=== PATIENT | female | born 1960 | race Caucasian/White ===

== ENCOUNTER → 2016-07-30 | Outpatient (CLI) | payer OTHER ==
[2016-07-30 10:07] LABS: Basophils % (A) 1 %; CH 31.6; CHCM 33.7; Eosinophils # (A) 0.1 k/uL (0-0.7); Eosinophils % (A) 1 %; HCT 37.8 % (34.0-46.0); HDW 2.28; HGB 12.3 gm/dL (11.4-16.0); Luc # (Auto) 0.11; Luc % (Auto) 2; Lymphocytes # (A) 1.5 k/uL (1.0-4.8); Lymphocytes % (A) 30 %; MCH 30.6 pg (25.0-35.0); MCHC 32.5 g/dL (31.0-37.0); MCV 94.1 fL (80.0-100.0); Mean Platelet Volume 6.5; Monocytes # (A) 0.3 k/uL (0-1.0); Monocytes % (A) 7 %; Neutrophils # (A) 2.9 k/uL (1.3-7.7); Neutrophils % (A) 59 %; RBC 4.02 m/uL (3.80-5.40); RDW 11.8 % (11.5-15.5); WBC (Perox) 5.28
[2016-07-30 10:38] LABS: Anion Gap 10 mmol/L; Blood Urea Nitrogen 11 mg/dL (7-17); Carbon Dioxide 29 mmol/L (22-30); Chloride 100 mmol/L (98-107); Glucose 93 mg/dL (74-99); Non-African American GFR(MDRD) >60 (>60 ml/min/1.73 sqM); Potassium 4.3 mmol/L (3.5-5.1); Sodium 139 mmol/L (137-145)
== END | disposition home or self-care (01) ==
LOC: LABPAT 08:58
PROVIDERS: ATTEND Obstetrics & Gynecology
DX: Z01.812 Encounter for preprocedural laboratory examination (principal)
CPT/HCPCS: 80051; 82565; 82947; 84520; 85025; 87086

== ENCOUNTER 2016-08-06 05:57 | Observation (INO) | payer OTHER ==
[2016-08-01 08:46] VITALS: BMI 21.9
[~2016-08-06 05:57] MED LIST: SCOPOLAMINE 1.5MG/72HR PATCH TRANSDERM ONE; ceFAZolin 2 GM in SODIUM CHLORIDE 0.9% 100 ML IVPB ONE
[2016-08-06] MEDS ORDERED: MIDAZOLAM 2 MG/2 ML VIAL IV PRN (06:12)
[2016-08-06] MEDS ORDERED: HYDROmorphone 1 MG/ML 1 ML SYRINGE IVP PRN (06:12)
[2016-08-06] MEDS ORDERED: DEXAMETHASONE SOD PHOSPHATE 10 MG/ML 1 ML VIAL IV ONE (06:12)
[2016-08-06] MEDS ORDERED: ONDANSETRON 4 MG/2 ML VIAL IVP ONE (06:12)
[2016-08-06] MEDS ORDERED: SCOPOLAMINE 1.5MG/72HR PATCH TRANSDERM ONE (06:12)
[2016-08-06] MEDS ORDERED: LIDOCAINE 1% 20 ML VIAL (10MG/ML) FOR IV START INTRADERMA ONE (06:37)
[2016-08-06] MEDS: LACTATED RINGERS 1,000 ML IV SCH (06:37)
[2016-08-06] MEDS ORDERED: VASOPRESSIN 20 UNIT/ML 1 ML VIAL SQ ONE ×2 (07:30→07:59)
[2016-08-06] MEDS ORDERED: BACITRACIN 500 UNIT/GM OINT 28.4 GM TUBE TOPICAL ONE ×2 (07:31→08:04)
[2016-08-06] MEDS ORDERED: MIDAZOLAM 2 MG/2 ML VIAL IVP ONE (07:39)
[2016-08-06] MEDS ORDERED: MIDAZOLAM 2 MG/2 ML VIAL ONE (07:40)
[2016-08-06] MEDS ORDERED: fentaNYL (PF) 50 MCG/ML 2 ML AMP IV ONE (07:40)
[2016-08-06] MEDS ORDERED: PROPOFOL 10 MG/ML 20 ML VIAL IV ONE (07:40)
[2016-08-06] MEDS ORDERED: fentaNYL (PF) 50 MCG/ML 2 ML AMP ONE (07:40)
[2016-08-06] MEDS ORDERED: MORPHINE SULFATE (PF) 0.3 MG/0.3 ML SYR ONE (07:40)
[2016-08-06] MEDS ORDERED: diphenhydrAMINE 50 MG/ML 1 ML VIAL IVP PRN (08:35)
[2016-08-06] MEDS ORDERED: MORPHINE SULFATE 4 MG/ML SYRINGE IVP PRN (08:35)
[2016-08-06] MEDS ORDERED: ONDANSETRON 4 MG/2 ML VIAL IVP PRN ×2 (08:35→08:50)
[2016-08-06] MEDS ORDERED: NALOXONE 0.4 MG/ML 1 ML VIAL IV PRN (08:35)
[2016-08-06] MEDS ORDERED: NALBUPHINE 10 MG/ML AMPUL IV PRN (08:35)
[2016-08-06] MEDS ORDERED: KETOROLAC 30 MG/ML 1 ML VIAL IVP PRN (08:35)
[2016-08-06] MEDS ORDERED: SIMETHICONE 80 MG CHEWABLE PO PRN (08:50)
[2016-08-06] MEDS ORDERED: METOCLOPRAMIDE 5 MG/ML 2 ML VIAL IVP PRN (08:50)
[2016-08-06] MEDS ORDERED: ZOLPIDEM 5 MG TAB PO PRN (08:50)
[2016-08-06] MEDS ORDERED: Acetaminophen-Codeine 300-30mg TAB PO PRN (08:50)
[2016-08-06] MEDS ORDERED: IBUPROFEN 600 MG TAB PO PRN (08:50)
--- NOTE | 2016-08-06 08:50 | P.OP ---
Date of Procedure: 08/06/16 Preoperative Diagnosis: Large endometrial polyp, postmenopausal bleeding, family hx ovarian CA Postoperative Diagnosis: Pathology pending Procedure(s) Performed: Vaginal hysterectomy, bilateral oophorectomy Anesthesia: SKYEA Surgeon: Dhara Bejarano Stockroom Associate #1: Min Kelley Estimated Blood Loss (ml): 25 IV fluids (ml): 500 Urine output (ml): 100 Pathology: other (Cervix and uterus, bilateral ovaries.) Condition: stable Disposition: PACU Description of Procedure: Patient is brought to the operating room where a spinal with Duramorph is placed without difficulty. She's placed in the dorsal lithotomy position. Antibiotics are given. Urine hCG is negative. The appropriate timeout is performed to assure proper patient and procedural identification. The cervix, vagina, perineal body and lower abdomen are all prepped and draped in usual sterile fashion. Examination under anesthesia reveals a small mobile uterus, small bilateral ovaries. Weighted speculum was placed into the vagina. Bladder is drained for 100 mL of clear yellow urine. A double-tooth tenaculum was used to grasp the small nulliparous cervix. She is injected circumferentially with a dilute Pitressin solution. A [place] blade scalpel is used to push the overlying mucosa from the underlying fascial plane. Peritoneum is entered at 6:00, suture tied with 2-0 Vicryl, and the large billed speculum was placed into the peritoneal cavity. Care at all times is taken to keep the mucosa swept well from the operative field to avoid bladder and/or ureteral injury. Uterosacral cardinal ligaments are identified, clamped with a Ronald clamp, cut and suture ligated, held bilaterally with hemostats. Uterine vasculature is identified, clamped cut and suture ligated. 2 additional pedicles are taken superior to the vessels. The anterior peritoneum was entered carefully with Metzenbaum scissors. Uterus is "walked out" posteriorly. Ronald clamps are used across the final pedicles and the specimen is removed. These pedicles are tied with 0 Vicryl suture, flashed , and retied for excellent hemostasis. A sponge stick is then placed into the peritoneal cavity. The right ovary is identified, grasped gently with a Tippo clamp. A Ronald clamp was placed over the ovarian pedicle in the ovaries removed. The pedicle is tied with a Armin stitch of 0 Vicryl for excellent hemostasis. The same procedure is carried out on the left or contralateral ovary. This tube appears normal to inspection. It is removed, pedicle tied with a Armin stitch of 0 Vicryl for excellent hemostasis. The tubes are rather high in the peritoneal cavity, and therefore left in situ. The speculum is then replaced with the shallow billed weighted speculum. The 2- 0 Vicryl suture placed at 6:00 is brought around in a pursestring fashion to close the peritoneum. All pedicles are inspected, noted to be intact, clean and dry. The previously held uterosacral cardinal ligament complex these are then brought across to incorporate the opposite complex as well as vaginal mucosa. 3 additional [id number] sutures of 0 Vicryl are used for final cuff closure. The vagina is packed with one-inch iodophor gauze. Painter catheter is placed in the urine is noted to be clear. All sponge needle and enhancement counts are correct. Patient is brought back to the recovery room in excellent condition with stable vital signs including blood pressure 105/58, pulse 56.
[2016-08-06] MEDS: diphenhydrAMINE 50 MG/ML 1 ML VIAL IVP PRN ×2 (14:26→20:31)
[2016-08-06] MEDS: KETOROLAC 30 MG/ML 1 ML VIAL IVP PRN (20:29)
[2016-08-07 04:29] VITALS: RESP 16
[2016-08-07] MEDS: LACTATED RINGERS 1,000 ML IV SCH (06:43)
[2016-08-07] MEDS: KETOROLAC 30 MG/ML 1 ML VIAL IVP PRN (06:44)
[2016-08-07 08:13] VITALS: BP 130/70; PULSE 74
[2016-08-07] MEDS ORDERED: ACETAMINOPHEN TAB 325 MG TAB PO PRN (08:51)
--- NOTE | 2016-08-07 09:07 | P.DS ---
Providers Date of admission: 08/07/16 06:58 Expected date of discharge: 08/07/16 Attending physician: Dhara Bejarano Primary care physician: Abby [facility] Course: The patient is a 55-year-old 0 para 0 who is status post endometrial ablation in 2009 and was found to have what appeared to be a large endometrial polyp by ultrasound. She was not having any ongoing bleeding or other concerns but was very concerned about the possibility of uterine and/or ovarian cancer as there is apparently a strong family history. She requested hysterectomy under the circumstances. She was taken the operating room where she underwent a vaginal hysterectomy and uncomplicated fashion. Her postoperative course was unremarkable vital signs remaining stable and her temperature was afebrile throughout. She was tolerating regular diet by postoperative day #1 was deemed stable for discharge on that day. She was discharged home to follow-up in the office in 2 weeks for recheck and 6 weeks routinely. Discharge instructions included calling for any significantly increased vaginal bleeding, fever, abdominal pain, GI complaints, or anything else that concerned her. She is additionally instructed to have nothing in the vagina for at least 6 weeks time to include intercourse and to abstain from any heavy lifting over the same period of time. She was last instructed to do no driving until off of all pain medications or 2 weeks' time, whichever came first. She understood her instructions and agrees to follow up as noted above. Discharge medications included [id number] analgesic pain medications as well as any home medications she may have been taking. She was provided with a prescription for Tylenol 3, 1-2 by mouth every 6 hours when necessary pain, #20 dispensed with no refills. Discharge hemoglobin and hematocrit are pending. Procedures: #1. Vaginal hysterectomy Patient Condition at Discharge: Good Plan - Discharge Summary New Discharge Prescriptions: Acetaminophen-Codeine 300-30mg [Tylenol #3] 2 tab PO Q6H PRN #20 tablet PRN Reason: Pain Discharge Medication List Acetaminophen-Codeine 300-30mg [Tylenol #3] 2 tab PO Q6H PRN #20 tablet [Rx] Follow up Appointment(s)/Referral(s): Dhara Bejarano MD [STAFF PHYSICIAN] - 2 Weeks Discharge Disposition: HOME SELF-CARE
--- NOTE | 2016-08-07 09:10 | P.PN ---
Progress Note - Text Date: 08/07/2016 Time: 0 621 The patient is status post, vaginal hysterectomy Vital signs stable VAS: 0-10 Patient has no complaints of pain. The patient incurred some minimal itching yesterday, this itching is now subsiding. Pain meds to be managed by service.
[2016-08-07 09:20] VITALS: TEMP 98.7
== END 2016-08-07 09:37 | disposition home or self-care (01) ==
LOC: OR 05:57 → 6PED 08:47 → OR 08-07 06:57 → 6PED 08-07 06:58
PROVIDERS: ADMIT Obstetrics & Gynecology; ATTEND Obstetrics & Gynecology
DX: N84.0 Polyp of corpus uteri (principal); N95.0 Postmenopausal bleeding; Z80.41 Family history of malignant neoplasm of ovary; D25.0 Submucous leiomyoma of uterus; L29.9 Pruritus, unspecified; N83.202 Unspecified ovarian cyst, left side; N83.201 Unspecified ovarian cyst, right side; Z88.2 Allergy status to sulfonamides; Z88.0 Allergy status to penicillin; N83.12 Corpus luteum cyst of left ovary; N83.11 Corpus luteum cyst of right ovary
CPT/HCPCS: 81025; 86900; 86901; 86850; 88307; 58262; G0378; J2250; J1200; J1100; J0690; J2405; J2274; J3010; J1885 ×2; J2704

== ENCOUNTER 2021-12-28 07:28 | Day surgery (SDC) | payer OTHER ==
[~2021-12-28 07:28] MED LIST changes: +DEXAMETHASONE SOD PHOSPHATE 4 MG/ML 1 ML VIAL IV ONE; +HYDROmorphone 0.5 MG/0.5 ML SYRINGE IVP PRN; +LACTATED RINGERS 1,000 ML IV SCH; +MIDAZOLAM 2 MG/2 ML VIAL IV PRN; +ONDANSETRON 4 MG/2 ML VIAL IVP ONE; +Pre Op ABX Message 1 EACH MISC MISCELLANE ONE; +SCOPOLAMINE 1 MG/72 HR PATCH TRANSDERM ONE; -SCOPOLAMINE 1.5MG/72HR PATCH TRANSDERM ONE; -ceFAZolin 2 GM in SODIUM CHLORIDE 0.9% 100 ML IVPB ONE
[2021-12-28] MEDS ORDERED: LIDOCAINE 1% (10MG/ML) FOR IV START INTRADERMA ONE (08:03)
[2021-12-28] MEDS ORDERED: fentaNYL (PF) 50 MCG/ML 2 ML AMP IV ONE (08:21)
--- NOTE | 2021-12-28 08:47 | P.ANPRN ---
Procedure Note - Anesthesia - Nerve Block Performed Left Popliteal Single Time Out Performed: Yes (821) Date of Procedure: 12/28/21 Procedure Start Time: Procedure Stop Time: Location of Patient: PreOp Indication: Acute Post-Operative Pain, Requested by Surgeon Specifically requested for management of pain by DrWan: Tin Ndiaye Sedation Type: Sedate with meaningful contact maintained Preparation: Sterile Prep Position: Supine Catheter: None Needle Types: Pajunk Needle Gauge: 21 Ultrasound used to visualize needle placement: Yes Ultrasound used to observe medication spread: Yes Injectate: 0.5% Ropivacaine (see comment for volume) (15cc + 5cc nacl) Blood Aspirated: No Pain Paresthesia on Injection Noted: No Resistance on Injection: Normal Image Stored and Saved: Yes Events: Uneventful and Well Tolerated
--- NOTE | 2021-12-28 08:48 | P.ANPRN ---
Procedure Note - Anesthesia - Nerve Block Performed Left Adductor Canal Single Time Out Performed: Yes (821) Date of Procedure: 12/28/21 Procedure Start Time: : Procedure Stop Time: Location of Patient: PreOp Indication: Acute Post-Operative Pain, Requested by Surgeon Specifically requested for management of pain by DrWan: Tin Ndiaye Sedation Type: Sedate with meaningful contact maintained Preparation: Sterile Prep Position: Supine Catheter: None Needle Types: Pajunk Needle Gauge: 21 Ultrasound used to visualize needle placement: Yes Ultrasound used to observe medication spread: Yes Injectate: 0.5% Ropivacaine (see comment for volume) (15cc + 5cc nacl pf) Blood Aspirated: No Pain Paresthesia on Injection Noted: No Resistance on Injection: Normal Image Stored and Saved: Yes Events: Uneventful and Well Tolerated
[2021-12-28] MEDS ORDERED: PROPOFOL 10 MG/ML 20 ML VIAL IV ONE (09:23)
[2021-12-28] MEDS ORDERED: ROPIVACAINE 5 MG/ML 30 ML VIAL ONE (09:23)
[2021-12-28] MEDS ORDERED: LIDOCAINE 2% INJ 20 MG/ML (2 ML VIAL) ONE (09:23)
[2021-12-28] MEDS ORDERED: MIDAZOLAM 2 MG/2 ML VIAL ONE (09:23)
[2021-12-28] MEDS ORDERED: ceFAZolin 1,000 MG VIAL ONE (09:23)
[2021-12-28] MEDS ORDERED: SODIUM CHLORIDE 0.9% (PF) 10 ML VIAL ONE (09:23)
[2021-12-28] MEDS ORDERED: ePHEDrine 50 MG/ML 1 ML VIAL ONE (09:23)
[2021-12-28] MEDS ORDERED: SODIUM CHLORIDE 0.9% 100 ML with ceFAZolin 2,000 MG IV ONE ×2 (09:30)
[2021-12-28] MEDS ORDERED: LACTATED RINGERS 1,000 ML IV ONE (10:54)
[2021-12-28 11:32] VITALS: TEMP 97.2
[2021-12-28 12:53] VITALS: BP 156/69; PULSE 78; RESP 18
--- NOTE | 2021-12-28 12:55 | P.OP ---
Date of Procedure: 12/28/21 Preoperative Diagnosis: 1. Rupture of peroneus longus and brevis tendons left ankle 2. Left ankle instability Postoperative Diagnosis: 1. Same 2. Same Procedure(s) Performed: 1. Open repair flexor tendons left ankle 2 2. Secondary repair of collateral ligaments left ankle (medial and lateral) Implants: Arthrex internal brace Arthrex fiber Norm anchors 4 Arthrex 4.75 mm swivel lock anchor Anesthesia: GETA Surgeon: Tin Ndiaye Estimated Blood Loss (ml): 10 Pathology: none sent Condition: stable Disposition: PACU Operative Findings: There was evidence of tearing in both the peroneal brevis and longus tendons. The peroneus brevis was split longitudinally. The portion of the splint was very thinned and attenuated. The peroneus longus tendon was very thickened with some retracted tissue noted that caused enlargement proximal to the retinaculum. Once debridement was completed of the tendons was necessary to perform a [id number] anastomosis of the peroneus brevis and longus. Description of Procedure: Prior to the patient being brought to the operating room, anesthesia administered a nerve block on the left lower extremity. The patient was then brought into the operating room and placed on table in supine position. Timeout was taken to confirm correct patient identifiers, correct procedure, and correct laterality of surgery. When all staff in the room were in agreement with the timeout, the patient was induced and placed under general anesthesia. A well- padded tourniquet was placed on the left calf, keeping 3-4 inches distal to the fibular neck. A bump was placed underneath the left hip to internally rotate the left leg. The left leg was then prepped and draped usual manner. Attention was directed over the lateral aspect of the ankle. An incision was made down the midline of the lateral malleolus and curved anteriorly after passing the distal aspect lateral malleolus. The incision was deepened down to the subcutaneous layer, careful to identify, avoid, and retract any neurovascul ar structures and cauterize any bleeding vessels. Blunt dissection through the subcutaneous layer was completed to expose the peroneal tendon sheath. The peroneal tendon sheath was incised off the posterior aspect of the lateral malleolus. The peroneal tendons were mobilized and identified. There was significant pathology both tendons: The peroneus brevis of the split longitudinal tear with significant attenuation of the 2 pieces that were part of the original tear. The peroneus longus tendon appeared to have had a partial thickness tear the cause retraction due to the enlargement noted proximal to the peroneal retinaculum. There is also significant inflammatory tissue within the peroneal tendon sheath. First, the inflammatory tissue was sharply removed off of the tendon surfaces. Then all pathologic tissue was sharply divided from the peroneus brevis and longus tendons. Once the brevis was provided, it was noted to be significantly thinned and attenuated. Therefore was determined that a jgmq-zg-[id number] anastomosis would be most beneficial. So distal tension was placed on the peroneus longus tendon, while the tension of the peroneus brevis was left on touched. The hbvq-xh-[id number] anastomosis was completed the proximal portion. And then the rest of the brevis tendon was transected and then the anastomosis was completed with the distal stump. Once completed the peroneal tendons were placed back in the fibular groove. It was good tension on the peroneus brevis tendon. The tendons glided smoothly through the peroneal groove with no catching. The wound is irrigated thoroughly with sterile saline The peroneal retinaculum was repaired in a way to lock the tendons in the fibular groove. attention then directed to the anterior lateral aspect of the ankle through the same incision. The saphenous tissue was bluntly dissected off the anterior lateral ankle joint capsule. The ligamentous and capsular structures were sharply incised off the anterior surface of the lateral malleolus. A Chuck was used to remove the cortical bone on the anterior surface the lateral malleolus to aid in soft tissue reattachment adhesion upon repair. With the ankle held in neutral position the portion of the talus on the lateral aspect anterior to the articular surface, was palpated to find the junction between the body and the neck. An incision was made through the tissue and then a drill hole for the 4.75 anchor was made into the talar body utilizing described technique to avoid this ankle and subtalar joints. The hole was tapped and the anchor inserted down to proper depth. The same drill bit was used to create the drill hole lateral malleolus for the 3.5 mm anchor. Drill holes for the fiber Norm anchors were then made, one superior one inferior to the 3.5 mm drill hole. Anchors were inserted and impacted to proper depth. Utilizing the suture attached to the ankle, the lateral ankle ligament structures distally were then sewn oversew and tightened onto the lateral surface of the fibula. This is done while holding the ankle maximally dorsiflexed and everted. Then the 2 arms of the suture for the 4.75 anchor were fed through the 3.5 mm anchor, which was then aligned with the drill hole in the lateral malleolus. Utilizing described tensioning techniques, the anchor was inserted with the suture and advanced to proper depth. A capsular defects were also repaired at this time. The ankle was tested for stability, and anterior drawer and inversion stress are both negative. The wound is then thoroughly irrigated with sterile saline. Subcutaneous closure was done with 4-0 Monocryl. Skin closure was completed with 30 Stratafix in a running subcuticular manner. The wedge was removed from the left hip to allow the left leg to externally rotate. Attention was then directed over the medial aspect of the ankle. A linear incision was made over the medial malleolus and encompassing the anterior portion of the deltoid ligament. The incision was deepened down to the subcutaneous tissue careful to identify, avoid, and retract any neurovascular structures and cauterize any bleeding vessels. Dissection was then continued bluntly down to level the deltoid ligament. The deltoid ligament was incised off the distal aspect of medial malleolus and encompassing anterior origins as well as the origins on the distal tip. A Chuck was used to remove the cortical bone on the tip of the medial malleolus to facilitate the soft tissue reattachment upon repair. Drill holes for 2 fiber Norm anchors were then made in the distal medial malleolus. The wound is then irrigated thoroughly with normal saline. The suture on the fiber Norm anchors were then used to capture the deltoid ligament. Then a drill hole for 4.75 anchor was then made in the medial aspect of the tibia superior to the ankle joint. The hole was then tapped and the suture from the fiber Norm anchors was placed through the 4.75 mm anchor. While holding the ankle inverted the anchor was inserted along with the suture into the drill hole the tibia and advanced into the tibia down to proper depth, and locking the suture in place. Once ligamentous repairs were completed ankle was tested for any abnormal movement during stress, and none were found. The medial wound is thoroughly irrigated with saline. Subcu closure was done for Monocryl. The skin was closed with 30 Stratafix in a running subcuticular manner. Dermal glue was applied all the incisions and covered Steri-Strips. An Arthrex jumpstart dressing was placed over both incisions, and then a dry bulky dressing is applied to left leg. The tourniquet was released and capillary refill return to all digits on the left foot. The patient was then placed in a well-padded, well molded plaster posterior mold/sugar tong splint. Ankle was held in neutral position until the splint was fully dried. The patient tolerated the above procedure and anesthesia well. The patient went to recovery with vital signs stable.
== END 2021-12-28 13:00 | disposition home or self-care (01) ==
LOC: OR 07:28
PROVIDERS: ATTEND Podiatrist
DX: S96.012A Strain of muscle and tendon of long flexor muscle of toe at ankle and foot level, left foot, initial encounter (principal); X50.1XXA Overexertion from prolonged static or awkward postures, initial encounter; Z90.710 Acquired absence of both cervix and uterus; Z98.890 Other specified postprocedural states; Z83.3 Family history of diabetes mellitus; Z79.1 Long term (current) use of non-steroidal anti-inflammatories (NSAID)
CPT/HCPCS: 64447; 64445; 76942; 27659; C1713; J2250; J1100; J2405; J0690; J3010; J2795; J2704; J2001